=== PATIENT | female | born 1950 | race Two or more races ===

== ENCOUNTER 2021-09-24 08:00 | Outpatient (CLI) | payer OTHER | END 2021-09-24 08:30 | disposition home or self-care (01) | LOC: PPH VACUNA 08:00 | PROVIDERS: ATTEND Emergency Medicine Pediatric Emergency Medicine | DX: Z23 Encounter for immunization (principal) ==

== ENCOUNTER 2023-04-05 08:33 | Outpatient (CLI) | payer OTHER ==
[~2023-04-05 08:33] MED LIST: COZAAR25 MG PO; NORVASC2.5 M1; ZIAC 2.5-6.251 EACH PO
== END 2023-04-05 08:37 | disposition home or self-care (01) ==
LOC: RX STUDY 08:33
PROVIDERS: ATTEND Internal Medicine Gastroenterology
DX: K21.9 Gastro-esophageal reflux disease without esophagitis (principal); R13.19 Other dysphagia